=== PATIENT | female | born 1995 | race Caucasian/White ===

== ENCOUNTER 2016-12-15 00:38 | Emergency (ER) | payer BC, SELFPAY ==
--- NOTE | 2016-12-15 00:52 | EDM.PDOC ---
ED HPI GENERAL MEDICAL PROBLEM - General Chief Complaint: Upper Extremity Injury/Pain Stated Complaint: NEEDS RING REMOVED FROM LEFT HAND RING FINGER Time Seen by Provider: 12/15/16 00:49 - History of Present Illness INITIAL COMMENTS - FREE TEXT/NARRATIVE: HISTORY AND PHYSICAL: History of present illness: Patient 21-year-old female presents with a concern of swelling to the ring finger of the left hand after having placed a ring on it earlier today she tried multiple times to remove this and is unable to have increased swelling and pain. Review of systems: As per history of present illness and below otherwise all systems reviewed and negative. Past medical history: As per history of present illness and as reviewed below otherwise noncontributory. Surgical history: As per history of present illness and as reviewed below otherwise noncontributory. Social history: No reported history of drug or alcohol abuse. Family history: As per history of present illness and as reviewed below otherwise noncontributory. Physical exam: HEENT: Atraumatic, normocephalic, pupils reactive, negative for conjunctival pallor or scleral icterus, mucous membranes moist, throat clear, neck supple, nontender, trachea midline. Lungs: Clear to auscultation, breath sounds equal bilaterally, chest nontender. Heart: S1S2, regular, negative for clicks, rubs, or JVD. Abdomen: Soft, nondistended, nontender. Negative for masses or hepatosplenomegaly. Negative for costovertebral tenderness. Pelvis: Stable nontender. Genitourinary: Deferred. Rectal: Deferred. Extremities: Patient has some swelling in edema proximal to a ring on the fourth digit of the left hand neurovascular exam CMS unremarkable there's clearly early signs of vascular congestion proximal to the ring Neuro: Awake, alert, oriented. Cranial nerves II through XII unremarkable. Cerebellum unremarkable. Motor and sensory unremarkable throughout. Exam nonfocal. Diagnostics: None Therapeutics: Ring was removed with a ring cutter Impression: #1 vascular congestion secondary to ring fourth digit left hand status post removal Definitive disposition and diagnosis as appropriate pending reevaluation and review of above. - Related Data Allergies Allergy/AdvReac Type Severity Reaction Status Date / Time No Known Allergies Allergy Verified 02/06/14 20:07 Home Meds: Home Meds Acetaminophen [Tylenol Extra Strength] 500 mg PO Q4H PRN #30 tab 04/30/14 [Rx] Benzocaine/Menthol [Dermoplast Pain Relief 20%-0.5% [place]] 78 gm TOP ASDIRECTED PRN #1 canister 04/30/14 [Rx] Docusate Sodium [Colace] 100 mg PO BID PRN #30 cap 04/30/14 [Rx] Ibuprofen [Motrin] 400 mg PO Q4H PRN #30 tablet 04/30/14 [Rx] Lanolin [Lansinoh HPA] 40 gm TOP ASDIRECTED PRN #1 crm 04/30/14 [Rx] Social & Family History - Tobacco Use Smoking Status *Q: Never Smoker - Alcohol Use Days Per Week of Alcohol Use: 0 - Recreational Drug Use Recreational Drug Use: No Review of Systems - Review of Systems Review Of Systems: ROS reveals no pertinent complaints other than HPI. ED EXAM, GENERAL - Physical Exam Exam: See Below (See dictation) Departure - Departure Time of Disposition: 00:51 Disposition: Home, Self-Care 01 Condition: Good Clinical Impression: Finger pain - Discharge Information Forms: ED Department Discharge Additional Instructions: The following information is given to patients seen in the emergency department who are being discharged to home. This information is to outline your options for follow-up care. We provide all patients seen in our emergency department with a follow-up referral. The need for follow-up, as well as the timing and circumstances, are variable depending upon the specifics of your emergency department visit. If you don't have a primary care physician on staff, we will provide you with a referral. We always advise you to contact your personal physician following an emergency department visit to inform them of the circumstance of the visit and for follow-up with them and/or the need for any referrals to a consulting specialist. The emergency department will also refer you to a specialist when appropriate. This referral assures that you have the opportunity for followup care with a specialist. All of these measure are taken in an effort to provide you with optimal care, which includes your followup. Under all circumstances we always encourage you to contact your private physician who remains a resource for coordinating your care. When calling for followup care, please make the office aware that this follow-up is from your recent emergency room visit. If for any reason you are refused follow-up, please contact the [facility] emergency department at and asked to speak to the emergency department charge nurse. Follow-up primary medical doctor 1-2 days return as needed as discussed
[2016-12-15 00:53] VITALS: BP 143/77
== END 2016-12-15 00:59 | disposition home or self-care (01) ==
LOC: MW.ED 00:38
DX: M79.645 Pain in left finger(s) (principal); M79.89 Other specified soft tissue disorders
CPT/HCPCS: 99283; 99284

== ENCOUNTER 2017-04-04 09:49 | Emergency (ER) | payer BC ==
[2017-04-04 10:07] VITALS: BP 115/82
--- NOTE | 2017-04-04 10:16 | EDM.PDOC ---
ED HPI GENERAL MEDICAL PROBLEM - General Chief Complaint: BEEF TRIMMER Problem Stated Complaint: AND BLEEDING Time Seen by Provider: 04/04/17 10:10 Source of Information: Reports: Patient History Limitations: Reports: No Limitations - History of Present Illness INITIAL COMMENTS - FREE TEXT/NARRATIVE: HISTORY AND PHYSICAL: History of present illness: [Patient comes to the emergency room with her complaining of bright red vaginal bleeding. She states she is 4 weeks with her LMP of February. She had one spot of light pink blood on toilet paper last evening but no pain, cramps or heavier bleeding through the night. She woke up at 9 AM today with. Like cramps to her lower abdomen and bright red vaginal bleeding. She states that she passed one large clot. Her was confirmed at [facility] earlier this month. LC1] Review of systems: As per history of present illness and below otherwise all systems reviewed and negative. Past medical history: As per history of present illness and as reviewed below otherwise noncontributory. Surgical history: As per history of present illness and as reviewed below otherwise noncontributory. Social history: No reported history of drug or alcohol abuse. Family history: As per history of present illness and as reviewed below otherwise noncontributory. Physical exam: HEENT: Atraumatic, normocephalic. Heart: RRR Lungs: CTA bilaterally Abdomen: Soft, nontender Extremities: Atraumatic. Neurovascular unremarkable. Neuro: Awake, alert, oriented. Motor and sensory unremarkable throughout. Exam nonfocal. Diagnostics: [ABO/Rh factor, CBC, urine culture, qualitative hCG, quantitative hCG, urinalysis, first trimester OB ultrasound] Impression: [miscarriage] Plan: [Discussed with patient that her ultrasound shows no intrauterine and labs are consistent with recent miscarriage. Recommend she follow-up with OB in the next 48 hours to repeat labs. Patient verbalized understanding of today's plan. All questions are answered and concerns are addressed.] Definitive disposition and diagnosis as appropriate pending reevaluation and review of above. Bilateral Lower Abdomen Pain Score (Numeric/FACES): 5 - Related Data Allergies Allergy/AdvReac Type Severity Reaction Status Date / Time No Known Allergies Allergy Verified 04/04/17 10:07 Home Meds: Home Meds Vits #93/Iron Fum/FA [ Formula Tablet] 1 tab PO DAILY 04/04/17 [History] Past Medical History BEEF TRIMMER History: Reports: - Past Surgical History HEENT Surgical History: Reports: Tonsillectomy Musculoskeletal Surgical History: Reports: Other (See Below) Other Musculoskeletal Surgeries/Procedures:: pin in 5th digit finger Social & Family History - Family History Family Medical History: Noncontributory - Tobacco Use Smoking Status *Q: Current Every Day Smoker Years of Tobacco use: 9 Packs/Tins Daily: 0.5 Used Tobacco, but Quit: No Second Hand Smoke Exposure: Yes - Caffeine Use Caffeine Use: Reports: Coffee Caffeine Use Comment: 1-2 cups per day avg - Alcohol Use Days Per Week of Alcohol Use: 0 - Recreational Drug Use Recreational Drug Use: No ED ROS GENERAL - Review of Systems Review Of Systems: ROS reveals no pertinent complaints other than HPI. ED EXAM - Physical Exam Exam: See Below Course - Vital Signs Last Recorded V/S: Last Vital Signs Temp 97.9 F 04/04/17 10:02 Pulse 84 04/04/17 10:02 Resp 16 04/04/17 10:02 BP 115/82 04/04/17 10:02 Pulse Ox 96 04/04/17 10:02 - Orders/Labs/Meds Orders: Active Orders 24 hr Category Date Time Status OB 1st Tri Sgl 1st Gest [US] Stat Exams 04/04/17 10:21 Taken CULTURE URINE [] Stat Lab 04/04/17 10:15 Received Labs: Laboratory Tests 04/04/17 04/04/17 04/04/17 Range/Units 10:15 10:25 10:25 WBC 8.64 (4.0-11.0) K/uL RBC 5.05 (4.30-5.90) M/uL Hgb 15.6 (12.0-16.0) g/dL Hct 45.5 (36.0-46.0) % MCV 90.1 (80.0-98.0) fL MCH 30.9 (27.0-32.0) pg MCHC 34.3 (31.0-37.0) g/dL RDW Std Deviation 44.5 (28.0-62.0) fl RDW Coeff of Francesca 14 (11.0-15.0) % Plt Count 351 (150-400) K/uL MPV 9.20 (7.40-12.00) fL Neut % (Auto) 59.8 (48.0-80.0) % Lymph % (Auto) 24.2 (16.0-40.0) % Real % (Auto) 11.1 (0.0-15.0) % Eos % (Auto) 4.4 (0.0-7.0) % Baso % (Auto) 0.5 (0.0-1.5) % Neut # (Auto) 5.2 (1.4-5.7) K/uL Lymph # (Auto) 2.1 (0.6-2.4) K/uL Real # (Auto) 1.0 H (0.0-0.8) K/uL Eos # (Auto) 0.4 (0.0-0.7) K/uL Baso # (Auto) 0.0 (0.0-0.1) K/uL Nucleated RBC % 0.0 /100WBC Nucleated RBCs # 0 K/uL HCG, Quant 31.0 mIU/mL Urine Color RED Urine Appearance CLOUDY Urine pH 5.5 (5.0-8.0) Ur Specific [place] >= 1.030 (1.001-1.035) Urine Protein >=300 (NEGATIVE) mg/dL Urine Glucose (UA) 100 H (NEGATIVE) mg/dL Urine Ketones TRACE H (NEGATIVE) mg/dL Urine Occult Blood LARGE H (NEGATIVE) Urine Nitrite POSITIVE H (NEGATIVE) Urine Bilirubin MODERATE H (NEGATIVE) Urine Ictotest NEGATIVE Urine Urobilinogen 1.0 (<2.0) EU/dL Ur Leukocyte Esterase TRACE (NEGATIVE) Urine RBC TOO NUMBEROUS TO CT H (0-2/HPF) Urine WBC 1-3 (0-5/HPF) Ur Epithelial Cells MANY (NONE-FEW) Urine Bacteria 2+ H (NEGATIVE) Urine Mucus MODERATE (NONE-MOD) Blood Type 04/04/17 Range/Units 10:25 WBC (4.0-11.0) K/uL RBC (4.30-5.90) M/uL Hgb (12.0-16.0) g/dL Hct (36.0-46.0) % MCV (80.0-98.0) fL MCH (27.0-32.0) pg MCHC (31.0-37.0) g/dL RDW Std Deviation (28.0-62.0) fl RDW Coeff of Francesca (11.0-15.0) % Plt Count (150-400) K/uL MPV (7.40-12.00) fL Neut % (Auto) (48.0-80.0) % Lymph % (Auto) (16.0-40.0) % Real % (Auto) (0.0-15.0) % Eos % (Auto) (0.0-7.0) % Baso % (Auto) (0.0-1.5) % Neut # (Auto) (1.4-5.7) K/uL Lymph # (Auto) (0.6-2.4) K/uL Real # (Auto) (0.0-0.8) K/uL Eos # (Auto) (0.0-0.7) K/uL Baso # (Auto) (0.0-0.1) K/uL Nucleated RBC % /100WBC Nucleated RBCs # K/uL HCG, Quant mIU/mL Urine Color Urine Appearance Urine pH (5.0-8.0) Ur Specific [place] (1.001-1.035) Urine Protein (NEGATIVE) mg/dL Urine Glucose (UA) (NEGATIVE) mg/dL Urine Ketones (NEGATIVE) mg/dL Urine Occult Blood (NEGATIVE) Urine Nitrite (NEGATIVE) Urine Bilirubin (NEGATIVE) Urine Ictotest Urine Urobilinogen (<2.0) EU/dL Ur Leukocyte Esterase (NEGATIVE) Urine RBC (0-2/HPF) Urine WBC (0-5/HPF) Ur Epithelial Cells (NONE-FEW) Urine Bacteria (NEGATIVE) Urine Mucus (NONE-MOD) Blood Type O POSITIVE Departure - Departure Time of Disposition: 11:52 Disposition: Home, Self-Care 01 Condition: Good Clinical Impression: Miscarriage - Discharge Information Instructions: Miscarriage, [id number] Referrals: PCP,None [Primary Care Provider] - Forms: ED Department Discharge Additional Instructions: The following information is given to patients seen in the emergency department who are being discharged to home. This information is to outline your options for follow-up care. We provide all patients seen in our emergency department with a follow-up referral. The need for follow-up, as well as the timing and circumstances, are variable depending upon the specifics of your emergency department visit. If you don't have a primary care physician on staff, we will provide you with a referral. We always advise you to contact your personal physician following an emergency department visit to inform them of the circumstance of the visit and for follow-up with them and/or the need for any referrals to a consulting specialist. The emergency department will also refer you to a specialist when appropriate. This referral assures that you have the opportunity for follow-up care with a specialist. All of these measure are taken in an effort to provide you with optimal care, which includes your follow-up. Under all circumstances we always encourage you to contact your private physician who remains a resource for coordinating your care. When calling for follow-up care, please make the office aware that this follow-up is from your recent emergency room visit. If for any reason you are refused follow-up, please contact the [facility] emergency department at and asked to speak to the emergency department charge nurse. [facility] [place] [phone] Call Dr. Reilly tomorrow and let her know that you were evaluated in the emergency room for miscarriage. You will need to have your labs followed. Return to ER as needed as discussed. - My Orders Last 24 Hours: My Active Orders 04/04/17 10:15 CULTURE URINE [RM] Stat 04/04/17 10:21 OB 1st Tri Sgl 1st Gest [US] Stat - Assessment/Plan Last 24 Hours: My Active Orders 04/04/17 10:15 CULTURE URINE [RM] Stat 04/04/17 10:21 OB 1st Tri Sgl 1st Gest [US] Stat
--- NOTE | 2017-04-05 17:48 | US ---
EXAM DATE: 04/04/17 PATIENT'S AGE: 21 Patient: GERARD VALDEZ Facility: [place], [place] Site . Site : 1995 Study: US OB Pelvis [id number]/10/2017 10:42:54 AM Ordering Physician: Doctor Walters Final Report: INDICATION: Bleeding during the 1st trimester. TECHNIQUE: Transvaginal imaging. COMPARISON: None. FINDINGS: Uterus is normal in size. The endometrial stripe measures 8 mm. There is no intrauterine gestational sac identified. The right ovary measures 1.4 x 1.8 x 2.3 cm and contains a small cyst measuring 1.4 cm. The left ovary measures 2.7 x 1.7 x 2.4 cm and is unremarkable. Normal blood flow is identified within both ovaries on color and spectral Doppler analysis. There is no adnexal mass. Trace amount of free fluid is seen in the pelvis. IMPRESSION: 1. No intrauterine is identified. 2. No suspicious adnexal mass to suggest an ectopic . Recommend correlation with date of LMP and serum beta HCG. Dictated by Hayden Francois MD @ 04/04/2017 10:59:01 AM Dictated by: Hayden Francois MD @ 04/04/2017 11:00:02 (Electronic Signature) Report Signed by Proxy. DANITA
== END 2017-04-04 12:01 | disposition home or self-care (01) ==
LOC: MW.ED 09:49
DX: O03.9 Complete or unspecified spontaneous abortion without complication (principal); F17.210 Nicotine dependence, cigarettes, uncomplicated
CPT/HCPCS: 36415; 76801; 76801-26; 81001; 84702; 85025; 86900; 86901; 87086; 99283; 99284-25

== ENCOUNTER 2017-05-23 13:16 | Emergency (ER) | payer BC ==
--- NOTE | 2017-05-23 13:50 | EDM.PDOC ---
ED HPI GENERAL MEDICAL PROBLEM - General Chief Complaint: Flank Pain Stated Complaint: FEVER Time Seen by Provider: 05/23/17 13:38 Source of Information: Reports: Patient History Limitations: Reports: No Limitations - History of Present Illness INITIAL COMMENTS - FREE TEXT/NARRATIVE: HISTORY AND PHYSICAL: History of present illness: Patient is a 21-year-old female who presents to the emergency room today with complaints of left flank pain. She states 2 weeks ago she did have a UTI but was untreated ([facility]) for this and had applied heat to the area and "had gone away". Yesterday she her to having left flank pain again and presented to the emergency room. Denies any abdominal pain, nausea, vomiting or diarrhea. Denies any recent injury/trauma or vertebral back pain. Last menstrual period was in February 2017, she did have a "miscarriage" and had another period in late March. She saw Dr. Andres recently and was told she is approximately 7 weeks . She has no vaginal bleeding, cramping or discharge. Review of systems: As per history of present illness and below otherwise all systems reviewed and negative. Past medical history: As per history of present illness and as reviewed below otherwise noncontributory. Surgical history: As per history of present illness and as reviewed below otherwise noncontributory. Social history: No reported history of drug or alcohol abuse. Family history: As per history of present illness and as reviewed below otherwise noncontributory. Physical exam: General: Nontoxic-appearing 21-year-old female. Alert and oriented. Appears in no acute distress. HEENT: Atraumatic, normocephalic, pupils reactive, negative for conjunctival pallor or scleral icterus, mucous membranes moist, throat clear, neck supple, nontender, trachea midline. Lungs: Clear to auscultation, breath sounds equal bilaterally, chest nontender. Heart: S1S2, regular, negative for clicks, rubs, or JVD. Abdomen: Soft, nondistended, nontender. Negative for masses or hepatosplenomegaly. Left sided costovertebral tenderness. Pelvis: Stable nontender. Genitourinary: Deferred. Rectal: Deferred. Extremities: Atraumatic, negative for cords or calf pain. Neurovascular unremarkable. Neuro: Awake, alert, oriented. Cranial nerves II through XII unremarkable. Cerebellum unremarkable. Motor and sensory unremarkable throughout. Exam nonfocal. Diagnostics: UA, urine culture Therapeutics: [] Impression: UTI Plan: 1. Please take the antibiotic as prescribed. May take Tylenol as needed for pain management. Plenty of fluids. 2. To your care with your DATABASE ADMINISTRATOR. Return to the ED as needed and as discussed. Definitive disposition and diagnosis as appropriate pending reevaluation and review of above. Onset: Today Duration: Day(s):, Week(s): Location: Reports: Back Left Flank Pain Score (Numeric/FACES): 7 - Related Data Allergies Allergy/AdvReac Type Severity Reaction Status Date / Time No Known Allergies Allergy Verified 04/04/17 10:07 Home Meds: Home Meds Vits #93/Iron Fum/FA [ Formula Tablet] 1 tab PO DAILY 04/04/17 [History] Nitrofurantoin Monohyd/M-Cryst [Macrobid 100 mg Capsule] 100 mg PO BID 10 Days # 20 capsule 05/23/17 [Rx] Past Medical History DATABASE ADMINISTRATOR History: Reports: , Spontaneous - Past Surgical History HEENT Surgical History: Reports: Tonsillectomy Musculoskeletal Surgical History: Reports: Other (See Below) Other Musculoskeletal Surgeries/Procedures:: pin in right 5th digit finger Social & Family History - Family History Family Medical History: Noncontributory - Tobacco Use Smoking Status *Q: Current Every Day Smoker Years of Tobacco use: 9 Packs/Tins Daily: 1 Used Tobacco, but Quit: No Second Hand Smoke Exposure: Yes - Caffeine Use Caffeine Use: Reports: Coffee Caffeine Use Comment: 1-2 cups per day avg - Alcohol Use Days Per Week of Alcohol Use: 0 - Recreational Drug Use Recreational Drug Use: No ED ROS GENERAL - Review of Systems Review Of Systems: ROS reveals no pertinent complaints other than HPI. ED EXAM, GI/ABD - Physical Exam Exam: See Below (See dictation) Course - Vital Signs Last Recorded V/S: Last Vital Signs Temp 98.1 F 05/23/17 13:30 Pulse 86 05/23/17 13:30 Resp 16 05/23/17 13:30 BP 111/69 05/23/17 13:30 Pulse Ox 95 05/23/17 13:30 - Orders/Labs/Meds Orders: Active Orders 24 hr Category Date Time Status CULTURE URINE [RM] Stat Lab 05/23/17 13:23 Received Labs: Laboratory Tests 05/23/17 05/23/17 Range/Units 13:23 13:23 Urine Color YELLOW Urine Appearance CLEAR Urine pH 6.0 (5.0-8.0) Ur Specific [place] 1.020 (1.001-1.035) Urine Protein TRACE (NEGATIVE) mg/dL Urine Glucose (UA) NEGATIVE (NEGATIVE) mg/dL Urine Ketones NEGATIVE (NEGATIVE) mg/dL Urine Occult Blood SMALL H (NEGATIVE) Urine Nitrite NEGATIVE (NEGATIVE) Urine Bilirubin SMALL H (NEGATIVE) Urine Ictotest NEGATIVE Urine Urobilinogen 0.2 (<2.0) EU/dL Ur Leukocyte Esterase SMALL (NEGATIVE) Urine RBC 4-6 (0-2/HPF) Urine WBC 8-10 (0-5/HPF) Ur Epithelial Cells MODERATE (NONE-FEW) Urine Bacteria 1+ H (NEGATIVE) Urine HCG, Qual POSITIVE (NEGATIVE) Departure - Departure Time of Disposition: 13:58 Disposition: Home, Self-Care 01 Clinical Impression: UTI, Urinary tract infectious disease - Discharge Information Prescriptions: Nitrofurantoin Monohyd/M-Cryst [Macrobid 100 mg Capsule] 100 mg PO BID 10 Days # 20 capsule Referrals: PCP,None [Primary Care Provider] - Forms: ED Department Discharge Additional Instructions: My general discharge The following information is given to patients seen in the emergency department who are being discharged to home. This information is to outline your options for follow-up care. We provide all patients seen in our emergency department with a follow-up referral. The need for follow-up, as well as the timing and circumstances, are variable depending upon the specifics of your emergency department visit. If you don't have a primary care physician on staff, we will provide you with a referral. We always advise you to contact your personal physician following an emergency department visit to inform them of the circumstance of the visit and for follow-up with them and/or the need for any referrals to a consulting specialist. The emergency department will also refer you to a specialist when appropriate. This referral assures that you have the opportunity for follow-up care with a specialist. All of these measure are taken in an effort to provide you with optimal care, which includes your follow-up. Under all circumstances we always encourage you to contact your private physician who remains a resource for coordinating your care. When calling for follow-up care, please make the office aware that this follow-up is from your recent emergency room visit. If for any reason you are refused follow-up, please contact the [facility] Emergency Department at and asked to speak to the emergency department charge nurse. [facility] [address] [place] [id number] 1. Please take the antibiotic as prescribed. May take Tylenol ( safe) as needed for pain management. Increase your oral fluids. 2. To your care with your DATABASE ADMINISTRATOR. Return to the ED as needed and as discussed. - My Orders Last 24 Hours: My Active Orders 05/23/17 13:23 CULTURE URINE [RM] Stat - Assessment/Plan Last 24 Hours: My Active Orders 05/23/17 13:23 CULTURE URINE [RM] Stat
[2017-05-23 14:15] VITALS: BP 109/66
== END 2017-05-23 14:12 | disposition home or self-care (01) ==
LOC: MW.ED 13:16
DX: O23.41 Unspecified infection of urinary tract in pregnancy, first trimester (principal); O99.331 Smoking (tobacco) complicating pregnancy, first trimester; F17.210 Nicotine dependence, cigarettes, uncomplicated; Z3A.01 Less than 8 weeks gestation of pregnancy
CPT/HCPCS: 81001; 81025; 87077; 87086; 87186; 99283

== ENCOUNTER 2018-01-16 03:27 | Inpatient (IN) | payer BC ==
[2018-01-16] MEDS ORDERED: Butorphanol 1 MG/ML SDV IVPUSH PRN (03:42)
[2018-01-16] MEDS ORDERED: Sodium Chloride 0.9% 2.5 ML Syringe FLUSH PRN (03:42)
[2018-01-16] MEDS ORDERED: Nalbuphine 10 MG/1 ML Vial IVPUSH PRN (03:42)
[2018-01-16] MEDS ORDERED: Misoprostol 200 MCG Tab PO PRN (03:42)
[2018-01-16] MEDS ORDERED: Tranexamic Acid 1,000 MG in Sodium Chloride 0.9% 100 ML IV PRN (03:42)
[2018-01-16] MEDS ORDERED: Methylergonovine 0.2 MG/1 ML Amp IM PRN (03:42)
[2018-01-16] MEDS ORDERED: Lidocaine 1% 50 ML MDV INJECT PRN (03:42)
[2018-01-16] MEDS ORDERED: Carboprost Tromethamine 250 MCG/1 ML Amp IM PRN (03:42)
[2018-01-16] MEDS ORDERED: Sodium Chloride 0.9% 10 ML Syringe FLUSH PRN (03:42)
[2018-01-16] MEDS ORDERED: Water For Irrigation,Sterile 1,000 ML Container IRR PRN (03:42)
[2018-01-16] MEDS ORDERED: Oxytocin/0.9 % Sodium Chloride 30 UNIT/500 ML BAG IV SCH (03:45)
[2018-01-16] MEDS ORDERED: Lactated Ringers 1,000 ML IV SCH (03:45)
[2018-01-16] MEDS ORDERED: Oxytocin 10 Units/1 ML SDV ONE (04:51)
--- NOTE | 2018-01-16 04:55 | PCM.SN ---
- Free Text/Narrative Note: Called for epidural placement. On arrival patient is and Dr Ritchie requesting I remain at the bedside due to thick mec. On delivery baby is crying and transitioning adequately. 's per nursing.
[2018-01-16] MEDS ORDERED: oxyCODONE 5 MG Tab PO PRN (05:19)
[2018-01-16] MEDS ORDERED: Witch Hazel Medicated Pads 40/Jar TOP PRN (05:19)
[2018-01-16] MEDS ORDERED: Ibuprofen 400 MG Tab PO PRN (05:19)
[2018-01-16] MEDS ORDERED: Docusate Sodium 100 MG Cap PO PRN (05:19)
[2018-01-16] MEDS ORDERED: Acetaminophen 500 MG Tab PO PRN ×2 (05:19)
[2018-01-16] MEDS ORDERED: Benzocaine/Menthol 20%-0.5% Spray 78 GM Cannister TOP PRN (05:19)
[2018-01-16] MEDS ORDERED: Bisacodyl 10 MG Supp RECTAL PRN (05:19)
[2018-01-16] MEDS ORDERED: Lanolin 100% Cream 7 GM Tube TOP PRN (05:19)
--- NOTE | 2018-01-16 05:19 | PCM.DEL ---
L & D Note - General Info Date of Service: 01/16/18 Mother's Due Date: 01/08/18 - Delivery Note Labor: Spontaneous Delivery Outcome: Livebirth Infant Delivery Method: Spontaneous Vaginal Delivery-Single Presentation: Right Occiput Anterior (SANDRA) Nuchal Cord: None Amniotic Fluid Description: Meconium Stained Episiotomy Type: None Laceration: 1st Degree Suture type: Other (monocyrl) Suture size: 2-0 Placenta: Intact, Spontaneous Cord: 3 Vessels Resuscitation Needed: No : Bulb Syringe Score 1 min: 8 Score 5 min: 9 Delivery Comments (Free Text/Narrative):: Live male delivered at 450am , 8/9 weight 3860g , 3VC , EBL 200 - General Info Date of Service: 01/16/18 - Patient Data Lab Results Last 24 Hours: Laboratory Results - last 24 hr 01/16/18 Range/Units 04:00 WBC 11.78 H (4.0-11.0) K/uL RBC 4.30 (4.30-5.90) M/uL Hgb 13.3 (12.0-16.0) g/dL Hct 38.1 (36.0-46.0) % MCV 88.6 (80.0-98.0) fL MCH 30.9 (27.0-32.0) pg MCHC 34.9 (31.0-37.0) g/dL RDW Std Deviation 45.4 (28.0-62.0) fl RDW Coeff of Francesca 14 (11.0-15.0) % Plt Count 292 (150-400) K/uL MPV 9.30 (7.40-12.00) fL Nucleated RBC % 0.0 /100WBC Nucleated RBCs # 0 K/uL Med Orders - Current: Current Medications Butorphanol Tartrate (Stadol) 1 mg IVPUSH Q1H PRN PRN Reason: Pain Last Admin: 01/16/18 04:16 Dose: 1 mg Carboprost Tromethamine (Hemabate Ds) 250 mcg IM ASDIRECTED PRN PRN Reason: Post Hemorrhage Lactated Ringer's (Ringers, Lactated) 1,000 mls @ 150 mls/hr IV ASDIRECTED MEERA Last Admin: 01/16/18 04:09 Dose: 150 mls/hr Oxytocin/Sodium Chloride (Oxytocin 30 Unit/500 Ml-Ns) 30 unit in 500 mls @ 500 mls/hr IV TITRATE MEERA Tranexamic Acid 1,000 mg/ (Sodium Chloride) 110 mls @ 660 mls/hr IV ONETIME PRN PRN Reason: Bleeding Lidocaine HCl (Xylocaine 1%) 50 ml INJECT ONETIME PRN PRN Reason: Laceration repair Methylergonovine Maleate (Methergine) 0.2 mg IM ASDIRECTED PRN PRN Reason: Post Hemorrhage Misoprostol (Cytotec) 200 mcg PO ONETIME PRN PRN Reason: Post Hemorrhage Nalbuphine HCl (Nubain) 10 mg IVPUSH Q1H PRN PRN Reason: Pain (severe 7-10) Sodium Chloride (Saline Flush) 10 ml FLUSH ASDIRECTED PRN PRN Reason: Keep Vein Open Sodium Chloride (Saline Flush) 2.5 ml FLUSH ASDIRECTED PRN PRN Reason: Keep Vein Open Sterile Water (Sterile Water For Irrigation) 1,000 ml IRR ASDIRECTED PRN PRN Reason: delivery Discontinued Medications Oxytocin (Pitocin) Confirm Administered Dose 10 unit .ROUTE .MedSocket-MED ONE Stop: 01/16/18 04:52 - Problem List & Annotations (1) Vaginal delivery SNOMED Code(s): 710232031 Code(s): O80 - ENCOUNTER FOR FULL-TERM UNCOMPLICATED DELIVERY Status: Acute Current Visit: Yes - Problem List Review Problem List Initiated/Reviewed/Updated: Yes - My Orders Last 24 Hours: My Active Orders 01/16/18 03:42 Patient Status [ADT] Routine May Shower [RC] ASDIRECTED Notify Provider [RC] PRN Up ad Yisel [RC] ASDIRECTED Vital Signs [RC] PER UNIT ROUTINE Butorphanol [Stadol] 1 mg IVPUSH Q1H PRN Carboprost Tromethamine [Hemabate DS] 250 mcg IM ASDIRECTED PRN Lidocaine 1% [Xylocaine 1%] 50 ml INJECT ONETIME PRN Methylergonovine [Methergine] 0.2 mg IM ASDIRECTED PRN Nalbuphine [Nubain] 10 mg IVPUSH Q1H PRN Sodium Chloride 0.9% [Saline Flush] 10 ml FLUSH ASDIRECTED PRN Sodium Chloride 0.9% [Saline Flush] 2.5 ml FLUSH ASDIRECTED PRN Tranexamic Acid [Cyklokapron] 1,000 mg Sodium Chloride 0.9% [Normal Saline] 100 ml IV ONETIME Water For Irrigation,Sterile [Sterile Water for Irrigation] 1,000 ml IRR ASDIRECTED PRN miSOPROStol [Cytotec] 200 mcg PO ONETIME PRN Scalp Electrode [WOMSER] Per Unit Routine Peripheral IV Insertion Adult [OM.PC] Routine Resuscitation Status Routine 01/16/18 03:45 Lactated Ringers [Ringers, Lactated] 1,000 ml IV ASDIRECTED Oxytocin/0.9 % Sodium Chloride [Oxytocin 30 Unit/500 ML-NS] 30 unit in 500 ml IV TITRATE 01/16/18 04:00 TYPE AND SCREEN [BBK] Routine
[2018-01-16] MEDS: Ibuprofen 800 MG Tab PO PRN ×2 (05:44→16:51)
--- NOTE | 2018-01-16 17:41 | OR ---
SURGEON: MEGHA DENG DATE OF PROCEDURE: 01/16/2018 PREOPERATIVE DIAGNOSIS: A 22-year-old G3, P1-0-1-1, at 41 weeks 1 day, in labor with ruptured membranes, thick meconium. POSTOPERATIVE DIAGNOSIS: A 22-year-old G3, P1-0-1-1, at 41 weeks 1 day, in labor with ruptured membranes, thick meconium. PROCEDURES: Normal spontaneous vaginal delivery and repair of first-degree laceration. FINDINGS: Live male delivered at 4:52 a.m. score was 8 and 9. Weight 3860g. ESTIMATED BLOOD LOSS: 200. BRIEF HISTORY ABOUT THE PATIENT: Patient is a low risk patient, came in complaining of contraction. When patient came in, she was noted to be 7 cm dilated. With the patient being fully dilated, she was encouraged to push. PROCEDURE: With the patient's good pushing effort,she delivered the head, followed by anterior and posterior shoulder then body of the infant. The cord was clamped and cut. The was handed over to the nursing room. The cord blood gases were obtained. The placenta was delivered via controlled cord traction and perineum was inspected. A first-degree laceration was noted, which was repaired. The was left in the Labor and Delivery room in stable condition. CARLOS MCQUEEN /[id number] MTDD
[2018-01-17] MEDS: Ibuprofen 800 MG Tab PO PRN ×2 (03:23→10:33)
[2018-01-17 08:21] VITALS: BP 111/64
--- NOTE | 2018-01-17 08:27 | PCM.PNPP ---
<Lucero Crain - Last Filed: 01/17/18 08:24> - General Info Date of Service: 01/17/18 Functional Status: Reports: Pain Controlled, Tolerating Diet, Ambulating, Urinating - Review of Systems General: Denies: Fever, Weakness, Fatigue Pulmonary: Denies: Shortness of Breath, Pleuritic Chest Pain, Cough Cardiovascular: Denies: Chest Pain, Palpitations, Dyspnea on Exertion Gastrointestinal: Denies: Abdominal Pain Genitourinary: Denies: Dysuria - General Info Date of Service: 01/17/18 - Patient Data Vital Signs - Most Recent: Last Vital Signs Temp 36.4 C 01/17/18 07:30 Pulse 89 01/17/18 07:30 Resp 18 01/17/18 07:30 BP 111/64 01/17/18 07:30 Pulse Ox 98 01/17/18 07:30 Weight - Most Recent: 173 lb Lab Results - Last 24 Hours: Laboratory Results - last 24 hr 01/16/18 01/16/18 01/17/18 Range/Units 04:50 04:50 05:25 Hgb 12.4 (12.0-16.0) g/dL Hct 36.6 (36.0-46.0) % Cord ABG pH 7.400 H (7.18-7.38) Cord ABG Base Excess -7 (-10--2) Cord VBG pH 7.352 (7.25-7.45) Cord VBG Base Excess -7 (-10--2) Med Orders - Current: Current Medications Acetaminophen (Tylenol Extra Strength) 500 mg PO Q4H PRN PRN Reason: Pain Acetaminophen (Tylenol Extra Strength) 1,000 mg PO Q4H PRN PRN Reason: Pain Benzocaine/Menthol (Dermoplast Pain Relief 20%-0.5% [place]) 78 gm TOP ASDIRECTED PRN PRN Reason: Perineal Comfort Measure Bisacodyl (Dulcolax) 10 mg RECTAL ONETIME PRN PRN Reason: Constipation Carboprost Tromethamine (Hemabate Ds) 250 mcg IM ASDIRECTED PRN PRN Reason: Post Hemorrhage Docusate Sodium (Colace) 100 mg PO BID PRN PRN Reason: Constipation Last Admin: 01/16/18 06:51 Dose: 100 mg Emollient Ointment (Lansinoh Hpa) 0 gm TOP ASDIRECTED PRN PRN Reason: Sore Nipples Last Admin: 01/16/18 06:51 Dose: 7 gm Lactated Ringer's (Ringers, Lactated) 1,000 mls @ 150 mls/hr IV ASDIRECTED MEERA Last Admin: 01/16/18 04:09 Dose: 150 mls/hr Oxytocin/Sodium Chloride (Oxytocin 30 Unit/500 Ml-Ns) 30 unit in 500 mls @ 500 mls/hr IV TITRATE [facility] Tranexamic Acid 1,000 mg/ (Sodium Chloride) 110 mls @ 660 mls/hr IV ONETIME PRN PRN Reason: Bleeding Ibuprofen (Motrin) 400 mg PO Q4H PRN PRN Reason: Pain Ibuprofen (Motrin) 800 mg PO Q6H PRN PRN Reason: Pain Last Admin: 01/17/18 03:23 Dose: 800 mg Lidocaine HCl (Xylocaine 1%) 50 ml INJECT ONETIME PRN PRN Reason: Laceration repair Methylergonovine Maleate (Methergine) 0.2 mg IM ASDIRECTED PRN PRN Reason: Post Hemorrhage Misoprostol (Cytotec) 200 mcg PO ONETIME PRN PRN Reason: Post Hemorrhage Oxycodone HCl (Oxycodone) 5 mg PO Q2H PRN PRN Reason: Pain Sodium Chloride (Saline Flush) 10 ml FLUSH ASDIRECTED PRN PRN Reason: Keep Vein Open Sodium Chloride (Saline Flush) 2.5 ml FLUSH ASDIRECTED PRN PRN Reason: Keep Vein Open Sterile Water (Sterile Water For Irrigation) 1,000 ml IRR ASDIRECTED PRN PRN Reason: delivery Last Admin: 01/16/18 04:50 Dose: 1,000 ml Witch Joanne (Tucks) 1 pad TOP ASDIRECTED PRN PRN Reason: comfort care Discontinued Medications Butorphanol Tartrate (Stadol) 1 mg IVPUSH Q1H PRN PRN Reason: Pain Last Admin: 01/16/18 04:16 Dose: 1 mg Nalbuphine HCl (Nubain) 10 mg IVPUSH Q1H PRN PRN Reason: Pain (severe 7-10) Oxytocin (Pitocin) Confirm Administered Dose 10 unit .ROUTE .STK-MED ONE Stop: 01/16/18 04:52 Last Admin: 01/16/18 04:53 Dose: 10 unit - Interaction Disposition, : in Room with Family Infant Interaction: Holding Infant Feeding: Attempted ; Nursed Fair/Poor Support Person: - Recovery Exam Fundal Tone: Firm Fundal Level: At Umbilicus Fundal Placement: Midline Lochia Amount: Scant Lochia Color: Rubra/Red Perineum Description: Other (see below) Other Perinuem Description: 1st degree laceration Episiotomy/Laceration: Approximated Bladder Status: Voiding - Exam General: Alert Neck: Supple Lungs: Clear to Auscultation, Normal Respiratory Effort Cardiovascular: Regular Rate, Regular Rhythm GI/Abdominal Exam: Normal Bowel Sounds, Soft, Non-Tender, No Distention Extremities: Normal Inspection, Normal Capillary Refill, Pedal Edema (trace) Skin: Warm, Dry, Intact - Problem List Review Problem List Initiated/Reviewed/Updated: Yes - Assessment Assessment:: PPD #1 s/p . Mimimal pain and lochia. Breast feeding well. Discharge home tomorrow. - Plan Plan:: Discharge home today. Pelvic rest for 6 weeks. Continue PNV while breast feeding. Can use OTC ibuprofen/tylenol as needed for pain. Instructed patient to call if she develops fever greater than 101 or bleeding through a large pad an hour. F/U with [facility] in 6 weeks. <Dafne Reilly - Last Filed: 01/17/18 09:43> - Patient Data Vital Signs - Most Recent: Last Vital Signs Temp 36.4 C 01/17/18 07:30 Pulse 89 01/17/18 07:30 Resp 18 01/17/18 07:30 BP 111/64 01/17/18 07:30 Pulse Ox 98 01/17/18 07:30 Lab Results - Last 24 Hours: Laboratory Results - last 24 hr 01/16/18 01/16/18 01/17/18 Range/Units 04:50 04:50 05:25 Hgb 12.4 (12.0-16.0) g/dL Hct 36.6 (36.0-46.0) % Cord ABG pH 7.400 H (7.18-7.38) Cord ABG Base Excess -7 (-10--2) Cord VBG pH 7.352 (7.25-7.45) Cord VBG Base Excess -7 (-10--2) Med Orders - Current: Current Medications Acetaminophen (Tylenol Extra Strength) 500 mg PO Q4H PRN PRN Reason: Pain Acetaminophen (Tylenol Extra Strength) 1,000 mg PO Q4H PRN PRN Reason: Pain Benzocaine/Menthol (Dermoplast Pain Relief 20%-0.5% [place]) 78 gm TOP ASDIRECTED PRN PRN Reason: Perineal Comfort Measure Bisacodyl (Dulcolax) 10 mg RECTAL ONETIME PRN PRN Reason: Constipation Carboprost Tromethamine (Hemabate Ds) 250 mcg IM ASDIRECTED PRN PRN Reason: Post Hemorrhage Docusate Sodium (Colace) 100 mg PO BID PRN PRN Reason: Constipation Last Admin: 01/16/18 06:51 Dose: 100 mg Emollient Ointment (Lansinoh Hpa) 0 gm TOP ASDIRECTED PRN PRN Reason: Sore Nipples Last Admin: 01/16/18 06:51 Dose: 7 gm Lactated Ringer's (Ringers, Lactated) 1,000 mls @ 150 mls/hr IV ASDIRECTED MEERA Last Admin: 01/16/18 04:09 Dose: 150 mls/hr Oxytocin/Sodium Chloride (Oxytocin 30 Unit/500 Ml-Ns) 30 unit in 500 mls @ 500 mls/hr IV TITRATE MEERA Tranexamic Acid 1,000 mg/ (Sodium Chloride) 110 mls @ 660 mls/hr IV ONETIME PRN PRN Reason: Bleeding Ibuprofen (Motrin) 400 mg PO Q4H PRN PRN Reason: Pain Ibuprofen (Motrin) 800 mg PO Q6H PRN PRN Reason: Pain Last Admin: 01/17/18 03:23 Dose: 800 mg Lidocaine HCl (Xylocaine 1%) 50 ml INJECT ONETIME PRN PRN Reason: Laceration repair Methylergonovine Maleate (Methergine) 0.2 mg IM ASDIRECTED PRN PRN Reason: Post Hemorrhage Misoprostol (Cytotec) 200 mcg PO ONETIME PRN PRN Reason: Post Hemorrhage Oxycodone HCl (Oxycodone) 5 mg PO Q2H PRN PRN Reason: Pain Sodium Chloride (Saline Flush) 10 ml FLUSH ASDIRECTED PRN PRN Reason: Keep Vein Open Sodium Chloride (Saline Flush) 2.5 ml FLUSH ASDIRECTED PRN PRN Reason: Keep Vein Open Sterile Water (Sterile Water For Irrigation) 1,000 ml IRR ASDIRECTED PRN PRN Reason: delivery Last Admin: 01/16/18 04:50 Dose: 1,000 ml Witch Joanne (Tucks) 1 pad TOP ASDIRECTED PRN PRN Reason: comfort care Discontinued Medications Butorphanol Tartrate (Stadol) 1 mg IVPUSH Q1H PRN PRN Reason: Pain Last Admin: 01/16/18 04:16 Dose: 1 mg Nalbuphine HCl (Nubain) 10 mg IVPUSH Q1H PRN PRN Reason: Pain (severe 7-10) Oxytocin (Pitocin) Confirm Administered Dose 10 unit .ROUTE .STK-MED ONE Stop: 01/16/18 04:52 Last Admin: 01/16/18 04:53 Dose: 10 unit - Assessment Assessment:: Patient evaluated at bedside. Agree with above. Reviewed S/S of blues vs depression and encouraged to call with any concerns - Plan Plan:: Discharge later in the day
== END 2018-01-17 12:20 | disposition home or self-care (01) | DRG 560 ==
LOC: MW.OBCHECK 03:27 → MW.OB 03:30 → MW.OBCHECK 03:42 → OBSVTOIN 04:50 → MW.OB 09:33
PROVIDERS: ADMIT Obstetrics & Gynecology; ATTEND Obstetrics & Gynecology
PROC: 10E0XZZ Delivery of Products of Conception, External Approach (ICD-10-PCS; principal; 2018-01-16)
PROC: 0HQ9XZZ Repair Perineum Skin, External Approach (ICD-10-PCS; 2018-01-16)
DX: O42.02 Full-term premature rupture of membranes, onset of labor within 24 hours of rupture (principal); O70.0 First degree perineal laceration during delivery; O48.0 Post-term pregnancy; O77.0 Labor and delivery complicated by meconium in amniotic fluid; Z3A.41 41 weeks gestation of pregnancy; Z37.0 Single live birth
CPT/HCPCS: 36415; 59025; 59409; 82803; 85014; 85018; 85027; 86850; 86900; 86901; A9270-GY; J0595; J2590; J7120

== ENCOUNTER 2018-12-29 19:40 | Emergency (ER) | payer BC ==
[2018-12-29] MEDS ORDERED: methylPREDNISolone Sodium Succinate 125 MG/2 ML SDV IM ONE (19:41)
[2018-12-29] MEDS ORDERED: Albuterol/Ipratropium 3.0-0.5 MG/3 ML Neb Soln NEB ONE (19:41)
--- NOTE | 2018-12-29 19:42 | EDM.PDOC ---
ED HPI GENERAL MEDICAL PROBLEM - General Stated Complaint: COUGH/TROUBLE BREATHING Time Seen by Provider: 12/29/18 19:42 Source of Information: Reports: Patient - History of Present Illness INITIAL COMMENTS - FREE TEXT/NARRATIVE: HISTORY AND PHYSICAL: History of present illness: [Patient with strong family history of asthma presents with cough and wheeze increasing in severity over the last few days she has had small nebs at home that she did use with some benefit however still pretty wheezy on arrival shot Solu-Medrol as improved symptoms no fever nausea vomiting chills sweats no shortness of breath cough persists His has cleared Review of systems: As per history of present illness and below otherwise all systems reviewed and negative. Past medical history: As per history of present illness and as reviewed below otherwise noncontributory. Surgical history: As per history of present illness and as reviewed below otherwise noncontributory. Social history: No reported history of drug or alcohol abuse. Family history: As per history of present illness and as reviewed below otherwise noncontributory. Physical exam: HEENT: Atraumatic, normocephalic, pupils reactive, negative for conjunctival pallor or scleral icterus, mucous membranes moist, throat clear, neck supple, nontender, trachea midline. Lungs: Clear to auscultation, breath sounds equal bilaterally, chest nontender. O's DuoNeb and Solu-Medrol Heart: S1S2, regular, negative for clicks, rubs, or JVD. Abdomen: Soft, nondistended, nontender. Negative for masses or hepatosplenomegaly. Negative for costovertebral tenderness. Pelvis: Stable nontender. Genitourinary: Deferred. Rectal: Deferred. Extremities: Atraumatic, negative for cords or calf pain. Neurovascular unremarkable. Neuro: Awake, alert, oriented. Cranial nerves II through XII unremarkable. Cerebellum unremarkable. Motor and sensory unremarkable throughout. Exam nonfocal. Diagnostics: [Chest 1 view ] Therapeutics: [ DuoNeb Albuterol neb Solu-Medrol Prednisone Albuterol HFA DuoNeb's at home ] Impression: bronchitis Likely asthma exacerbation ] Definitive disposition and diagnosis as appropriate pending reevaluation and review of above. chest Pain Score (Numeric/FACES): 8 - Related Data Allergies Allergy/AdvReac Type Severity Reaction Status Date / Time No Known Allergies Allergy Verified 12/29/18 20:17 Home Meds: Home Meds . [No Known Home Meds] 12/29/18 [History] Past Medical History HEENT History: Reports: None Cardiovascular History: Reports: None Respiratory History: Reports: None Genitourinary History: Reports: None LIBRARY SPECIALIST History: Reports: , Spontaneous Neurological History: Reports: None Psychiatric History: Reports: None Endocrine/Metabolic History: Reports: None Hematologic History: Reports: None Immunologic History: Reports: None Oncologic (Cancer) History: Reports: None Dermatologic History: Reports: None - Infectious Disease History Infectious Disease History: Reports: None - Past Surgical History Head Surgeries/Procedures: Reports: None HEENT Surgical History: Reports: Tonsillectomy Cardiovascular Surgical History: Reports: None Endocrine Surgical History: Reports: None Neurological Surgical History: Reports: None Musculoskeletal Surgical History: Reports: Other (See Below) Other Musculoskeletal Surgeries/Procedures:: pin in right 5th digit finger Oncologic Surgical History: Reports: None Dermatological Surgical History: Reports: None Social & Family History - Family History Family Medical History: Noncontributory HEENT: Reports: None Cardiac: Reports: None Respiratory: Reports: None GI: Reports: None : Reports: None OBGYN: Reports: None Neurological: Reports: None Psychiatric: Reports: None Endocrine/Metabolic: Reports: Diabetes, type II Hematologic: Reports: None Immunologic: Reports: None Dermatologic: Reports: None Oncologic: Reports: None - Caffeine Use Caffeine Use: Reports: Coffee, Soda Caffeine Use Comment: 1-2 cups per day avg ED ROS GENERAL - Review of Systems Review Of Systems: See Below ED EXAM, GENERAL - Physical Exam Exam: See Below Course - Vital Signs Last Recorded V/S: Last Vital Signs Temp 97.4 F 12/29/18 19:40 Pulse 88 12/29/18 19:40 Resp 18 12/29/18 19:40 BP 133/93 H 12/29/18 19:40 Pulse Ox 95 12/29/18 19:40 - Orders/Labs/Meds Orders: Active Orders 24 hr Category Date Time Status RT Aerosol Therapy [RC] ASDIRECTED Care 12/29/18 19:41 Active RT Aerosol Therapy [RC] ASDIRECTED Care 12/29/18 20:33 Ordered Medication Orders Albuterol (Proventil Neb Soln) 2.5 mg NEB ONETIME ONE Stop: 12/29/18 20:33 Meds: Medications Generic Name Dose Route Start Last Admin Trade Name Freq PRN Reason Stop Dose Admin Albuterol 2.5 mg 12/29/18 20:32 Proventil Neb Soln NEB 12/29/18 20:33 ONETIME ONE Discontinued Medications Generic Name Dose Route Start Last Admin Trade Name Freq PRN Reason Stop Dose Admin Albuterol/Ipratropium 3 ml 12/29/18 19:41 12/29/18 19:53 Duoneb 3.0-0.5 Mg/3 Ml NEB 12/29/18 19:42 3 ml ONETIME ONE Administration Methylprednisolone Sodium Succinate 125 mg 12/29/18 19:41 12/29/18 19:53 Solu-Medrol IM 12/29/18 19:42 125 mg ONETIME ONE Administration Departure - Departure Time of Disposition: 20:35 Disposition: Home, Self-Care 01 Condition: Good Clinical Impression: Bronchitis - Discharge Information Additional Instructions: The following information is given to patients seen in the emergency department who are being discharged to home. This information is to outline your options for follow-up care. We provide all patients seen in our emergency department with a follow-up referral. The need for follow-up, as well as the timing and circumstances, are variable depending upon the specifics of your emergency department visit. If you don't have a primary care physician on staff, we will provide you with a referral. We always advise you to contact your personal physician following an emergency department visit to inform them of the circumstance of the visit and for follow-up with them and/or the need for any referrals to a consulting specialist. The emergency department will also refer you to a specialist when appropriate. This referral assures that you have the opportunity for follow-up care with a specialist. All of these measure are taken in an effort to provide you with optimal care, which includes your follow-up. Under all circumstances we always encourage you to contact your private physician who remains a resource for coordinating your care. When calling for follow-up care, please make the office aware that this follow-up is from your recent emergency room visit. If for any reason you are refused follow-up, please contact the [facility] emergency department at and asked to speak to the emergency department charge nurse. - My Orders Last 24 Hours: My Active Orders 12/29/18 19:41 RT Aerosol Therapy [RC] ASDIRECTED 12/29/18 20:33 RT Aerosol Therapy [RC] ASDIRECTED - Assessment/Plan Last 24 Hours: My Active Orders 12/29/18 19:41 RT Aerosol Therapy [RC] ASDIRECTED 12/29/18 20:33 RT Aerosol Therapy [RC] ASDIRECTED
--- NOTE | 2018-12-29 20:22 | CR ---
INDICATION: cough x 4 days TECHNIQUE: Chest 1 view. COMPARISON: None. FINDINGS: Cardiovascular and mediastinum: Heart size and vasculature are normal in caliber and appearance. Mediastinum is within normal limits. Lungs and pleural space: Lungs are clear. No sign of infiltrate or mass. No sign of pleural effusion. No pneumothorax. Bones and soft tissues: No significant findings. IMPRESSION: Unremarkable chest. Dictated by: Guerrero Blackburn MD @ 12/29/2018 20:21:54 (Electronically Signed)
[2018-12-29] MEDS ORDERED: Albuterol 0.083% 2.5 MG/3 ML Neb Soln NEB ONE (20:32)
[2018-12-29 22:23] VITALS: BP 135/75
== END 2018-12-29 20:03 | disposition home or self-care (01) ==
LOC: MW.ED 19:40
DX: J40 Bronchitis, not specified as acute or chronic (principal); Z98.890 Other specified postprocedural states
CPT/HCPCS: 71045; 93005; 96372; 99285; J2930; J7620-GY

== ENCOUNTER 2021-02-19 19:53 | Emergency (ER) | payer BC ==
[2021-02-19 21:54] LABS: BLOOD UREA NITROGEN,BUN 10 mg/dL (7.0-18.0); CARBON DIOXIDE,CO2 23.9 mmol/L (21.0-32.0); CHLORIDE,CL 104 mmol/L (98-107); GLUCOSE RANDOM 93 mg/dL (74-106); POTASSIUM,K 3.6 mmol/L (3.5-5.1); SODIUM,NA 140 mmol/L (136-145)
--- NOTE | 2021-02-19 22:06 | EDM.PDOC ---
ED HPI GENERAL MEDICAL PROBLEM - General Chief Complaint: Skin Complaint Stated Complaint: RASH ON LT ARM Time Seen by Provider: 02/19/21 20:35 - History of Present Illness INITIAL COMMENTS - FREE TEXT/NARRATIVE: CHIEF COMPLAINT(S): Rash HISTORY OF PRESENT ILLNESS: This is a 25-year-old woman with a past medical history of depression/anxiety who comes to the emergency department with a chief complaint of rash. The patient states that she started to notice a rash on her left arm and left chest wall that started this evening. She states that the rash is red is not itchy and denies any swelling. She denies any pus drainage, tenderness or warmth. She states that approximately 1 month ago she had a lymph node that was enlarged in her left armpit which they did an ultrasound was found to be normal. She denies any weight loss, night sweats but states that she does have a enlarged lymph node near her left elbow and behind her left ear. She denies any dental pain, earache, runny nose. She denies any new medications or detergents. She denies any chest pain, shortness of breath, wheezing, trouble swallowing or trouble breathing. She denies any other symptoms. REVIEW OF SYSTEMS: Constitutional: Denies fever, chills. Eyes: Denies eye pain Ears, Nose, Mouth, & Throat: Denies earache Cardiovascular: Denies chest pain Respiratory: Denies shortness of breath Gastrointestinal: Denies Nausea, vomiting, diarrhea, hematochezia. Genitourinary: Denies hematuria Skin: Positive for rash to left arm and left chest wall MSK: Denies joint pain Neurological: Denies blurred vision Psychiatric: Positive for depression and anxiety PAST MEDICAL HISTORY: As per history of present illness and as reviewed below otherwise noncontributory. SURGICAL HISTORY: As per history of present illness and as reviewed below other cruz noncontributory. SOCIAL HISTORY: As per history of present illness and as reviewed below otherwise noncontributory. FAMILY HISTORY: As per history of present illness and as reviewed below other cruz noncontributory. EXAMINATION OF ORGAN SYSTEMS/BODY AREAS: Constitutional: Blood pressure is 150/108, heart rate 85, respiratory rate 14 with an oxygen saturation of 100% on room air. Temperature 36.2 General: Anxious appearing woman who is in no acute distress otherwise Psychiatric: Anxious appearing but cooperative Eyes: No scleral icterus or conjunctival erythema ENMT: Moist mucous membranes. No pharyngeal erythema Cardiovascular: Regular, rate, and rhythm. No gallops, murmurs, or rubs. Bilateral upper extremity pulses symmetric and intact. No peripheral edema. No JVD. Respiratory: Lungs clear to auscultation bilaterally. No wheezes, rales, or rhonchi. Gastrointestinal: Soft, non-tender, non-distended. Normoactive bowel sounds Genitourinary: No suprapubic tenderness Musculoskeletal: Normal range of motion. Skin: There is a macular erythematous blotchy rash to the patient's left medial arm and left lateral chest wall which is nontender, not warm. Neurological: Alert, GCS 15 MEDICAL DECISION MAKING AND COURSE IN THE ED WITH INTERPRETATION/REVIEW OF DIAGNOSTIC STUDIES: This is a 25-year-old woman with a past medical history of depression anxiety who comes to the emergency department with acute onset left arm and left chest wall macular red rash which does not appear to be urticarial or infectious. There is no underlying induration or fluctuance. Given the reported history of lymph node enlargement I did perform a examination which there was not any lymph nodes palpable. Will obtain screening labs including CBC and CMP. At this time I do not believe any treatment is indicated. She was amenable to this plan. Laboratory: CBC is unremarkable. CMP is unremarkable except for mild elevation in ALT at 65. At this time I did discuss with patient that she was stable for discharge. She was given strict return precautions. She is to follow-up with dermatology and her primary care physician. DISPOSITION: The patient was discharged home in stable condition. The patient will follow up with dermatology within 3 to 5 days CONDITION: Fair PROCEDURES: None FINAL IMPRESSION(S)/DIAGNOSES: 1. Acute rash Aram Verde M.D. - Related Data Allergies Allergy/AdvReac Type Severity Reaction Status Date / Time No Known Allergies Allergy Verified 02/19/21 20:35 Home Meds: Home Meds . [No Known Home Meds] 12/29/18 [History] Past Medical History - Past Health History Medical/Surgical History: Denies Medical/Surgical History HEENT History: Reports: None Cardiovascular History: Reports: None Respiratory History: Reports: None Genitourinary History: Reports: None [employer] History: Reports: , Spontaneous Neurological History: Reports: None Psychiatric History: Reports: None Endocrine/Metabolic History: Reports: None Hematologic History: Reports: None Immunologic History: Reports: None Oncologic (Cancer) History: Reports: None Dermatologic History: Reports: None - Infectious Disease History Infectious Disease History: Reports: None - Past Surgical History Head Surgeries/Procedures: Reports: None HEENT Surgical History: Reports: Tonsillectomy Cardiovascular Surgical History: Reports: None Endocrine Surgical History: Reports: None Neurological Surgical History: Reports: None Musculoskeletal Surgical History: Reports: Other (See Below) Other Musculoskeletal Surgeries/Procedures:: pin in right 5th digit finger Oncologic Surgical History: Reports: None Dermatological Surgical History: Reports: None Social & Family History - Family History Family Medical History: No Pertinent Family History HEENT: Reports: None Cardiac: Reports: None Respiratory: Reports: None GI: Reports: None : Reports: None OBGYN: Reports: None Neurological: Reports: None Psychiatric: Reports: None Endocrine/Metabolic: Reports: Diabetes, type II Hematologic: Reports: None Immunologic: Reports: None Dermatologic: Reports: None Oncologic: Reports: None - Caffeine Use Caffeine Use: Reports: Coffee, Soda Caffeine Use Comment: 1-2 cups per day avg - Recreational Drug Use Recreational Drug Use: No ED ROS GENERAL - Review of Systems Review Of Systems: See Below ED EXAM, SKIN/RASH Exam: See Below Course - Vital Signs Last Recorded V/S: Last Vital Signs Temp 36.2 C 02/19/21 20:30 Pulse 82 02/19/21 22:00 Resp 15 02/19/21 22:00 BP 124/85 02/19/21 22:00 Pulse Ox 97 02/19/21 22:00 - Orders/Labs/Meds Labs: Laboratory Tests 02/19/21 02/19/21 Range/Units 21:27 21:27 WBC 8.07 (4.0-11.0) K/uL RBC 4.54 (4.30-5.90) M/uL Hgb 14.7 (12.0-16.0) g/dL Hct 41.8 (36.0-46.0) % MCV 92.1 (80.0-98.0) fL MCH 32.4 H (27.0-32.0) pg MCHC 35.2 (31.0-37.0) g/dL RDW Std Deviation 43.8 (28.0-62.0) fl RDW Coeff of Francesca 13 (11.0-15.0) % Plt Count 311 (150-400) K/uL MPV 9.20 (7.40-12.00) fL Neut % (Auto) 63.9 (48.0-80.0) % Lymph % (Auto) 25.9 (16.0-40.0) % [place] % (Auto) 7.6 (0.0-15.0) % Eos % (Auto) 2.2 (0.0-7.0) % Baso % (Auto) 0.4 (0.0-1.5) % Neut # (Auto) 5.2 (1.4-5.7) K/uL Lymph # (Auto) 2.1 (0.6-2.4) K/uL [place] # (Auto) 0.6 (0.0-0.8) K/uL Eos # (Auto) 0.2 (0.0-0.7) K/uL Baso # (Auto) 0.0 (0.0-0.1) K/uL Nucleated RBC % 0.0 /100WBC Nucleated RBCs # 0 K/uL Sodium 140 (136-145) mmol/L Potassium 3.6 (3.5-5.1) mmol/L Chloride 104 (98-107) mmol/L Carbon Dioxide 23.9 (21.0-32.0) mmol/L BUN 10 (7.0-18.0) mg/dL Creatinine 0.7 (0.6-1.0) mg/dL Est Cr Clr Drug Dosing 113.01 mL/min Estimated GFR (MDRD) > 60.0 ml/min Glucose 93 (74-106) mg/dL Calcium 9.2 (8.5-10.1) mg/dL Total Bilirubin 0.3 (0.2-1.0) mg/dL AST 26 (15-37) IU/L ALT 65 H (14-63) IU/L Alkaline Phosphatase 51 (46-116) U/L Total Protein 7.6 (6.4-8.2) g/dL Albumin 4.0 (3.4-5.0) g/dL Globulin 3.6 (2.6-4.0) g/dL Albumin/Globulin Ratio 1.1 (0.9-1.6) Departure - Departure Time of Disposition: 22:05 Disposition: Home, Self-Care 01 Condition: Fair Clinical Impression: Rash - Discharge Information *PRESCRIPTION DRUG MONITORING PROGRAM REVIEWED*: No *COPY OF PRESCRIPTION DRUG MONITORING REPORT IN PATIENT JERMAINE: No Instructions: Rash, Adult Referrals: Della Wahl MD [Primary Care Provider] - Forms: ED Department Discharge Additional Instructions: You were evaluated today on an emergent basis. At this time it is uncertain as to what is causing the rash of your left arm however it does not appear to be infectious therefore I do not believe any antibiotics are indicated. In addition it does not appear to be allergic therefore I do not believe any steroids are also needed. I recommend that you follow-up with your primary care physician and follow-up with dermatology [facility] [address], [address] [place] [address] [phone] The patient is informed of any results of their evaluation and diagnostic workup and all questions are answered. They are given discharge instructions and return precautions. The patient is stable for discharge. The patient states they understand and agree with the plan and that they will return if their symptoms get worse or if they have any new concerns. The following information is given to patients seen in the emergency department who are being discharged to home. This information is to outline your options for follow-up care. We provide all patients seen in our emergency department with a follow-up referral. The need for follow-up, as well as the timing and circumstances, are variable depending upon the specifics of your emergency department visit. If you don't have a primary care physician on staff, we will provide you with a referral. We always advise you to contact your personal physician following an emergency department visit to inform them of the circumstance of the visit and for follow-up with them and/or the need for any referrals to a consulting specialist. The emergency department will also refer you to a specialist when appropriate. This referral assures that you have the opportunity for follow-up care with a specialist. All of these measure are taken in an effort to provide you with optimal care, which includes your follow-up. Under all circumstances we always encourage you to contact your private physician who remains a resource for coordinating your care. When calling for follow-up care, please make the office aware that this follow-up is from your recent emergency room visit. If for any reason you are refused follow-up, please contact the [facility] Emergency Department at and asked to speak to the emergency department charge nurse. Sepsis Event Note (ED) - Evaluation Sepsis Screening Result: No Definite Risk - Focused Exam Vital Signs: Vital Signs Temp Pulse Resp BP Pulse Ox 02/19/21 22:00 82 15 124/85 97 02/19/21 20:30 36.2 C 85 14 150/108 H 100
[2021-02-20 00:22] VITALS: BP 124/85; PULSE 82
== END 2021-02-19 22:15 | disposition home or self-care (01) ==
LOC: MW.ED 19:53
DX: R21 Rash and other nonspecific skin eruption (principal)
CPT/HCPCS: 36415; 80053; 85025; 99283